=== PATIENT | male | born 1980 | race Caucasian/White ===

== ENCOUNTER → 2024-05-24 | Outpatient (CLI) | payer OTHER ==
--- NOTE | 2024-05-27 20:46 | MR ---
EXAMINATION TYPE: MRI left knee without IV contrast DATE OF EXAM: 05/24/2024 COMPARISON: Radiographs 05/19/2024 HISTORY: Left knee pain, Reinjured, Hx ACL repair left May 2023 and Meniscus repair December 2023 TECHNIQUE: Multiplanar, multisequence imaging of the left knee knee is performed without IV contrast. FINDINGS: MEDIAL MENISCUS: Free edge blunting of the anterior and posterior horns of the medial meniscus likely related to prior partial meniscectomy. Horizontal undersurface signal in the posterior horn of the m edial meniscus which may relate to tear or postsurgical change. No para meniscal cysts. LATERAL MENISCUS: Free edge blunting of the posterior horn of the lateral meniscus which may relate t o prior partial meniscectomy. Remaining portions of the lateral meniscus are without discrete tear. CRUCIATE LIGAMENTS: Anterior cruciate ligament repair with intrasubstance ganglion along its intercon dylar notch segment measuring 10 x 6 x 7 mm. No ganglia within the femoral or tibial tunnels. No ACL graft tear. Negative for arthrofibrosis. Intact posterior cruciate ligament. COLLATERAL LIGAMENTS: Medial and lateral collateral ligament complex are intact. EXTENSOR MECHANISM: Quadriceps and patellar tendons are intact. EFFUSION: Minimal joint effusion without significant synovitis. Scarring within Hoffa's fat pad. POPLITEAL CYST: No popliteal/munoz cyst. CARTILAGE: Patellofemoral cartilage is intact. 7 mm region of high-grade chondral fibrillation along the middle third of the medial femoral condyle. 18 mm region of chondral fibrillation and thinning along the middle third of the lateral femoral cond yle. BONE MARROW SIGNAL: Small subcortical cysts/degenerative marrow edema along the middle third of the m edial and lateral femoral condyles. Bone marrow signal is otherwise normal. OTHER: Soft tissues are within normal limits. IMPRESSION: 1. Intact ACL graft with mild ganglion transformation along the intercondylar notch. Negative for art hrofibrosis. 2. Free edge blunting of the medial and lateral menisci as above which may relate to prior partial me niscectomies. Suspected small horizontal undersurface tear along the posterior horn of the medial men iscus versus postoperative change. Correlate with operative report. 3. Mild medial and lateral compartment chondrosis as above. 4. Minimal joint effusion without significant synovitis. [facility], Workstation: [id number], 05/27/2024 8:44 PM
== END | disposition home or self-care (01) ==
LOC: RADMRIMAIN 21:00
PROVIDERS: ATTEND Orthopaedic Surgery